=== PATIENT | female | born 1960 | race Caucasian/White ===

== ENCOUNTER 2018-07-10 10:12 | Emergency (ER) | payer SELFPAY ==
[2018-07-10 10:13] VITALS: BMI 28.0
[2018-07-10 10:30] VITALS: RESP 16; TEMP 98.2; O2SAT 98
--- NOTE | 2018-07-10 10:30 | C.PDOC ---
History Of Present Illness 58 y/o female presents to the ED for evaluation of left knee pain for the past few weeks. Patient reports pain to the left knee which radiates up and down the left leg. No known trauma or injury. She also complains of a rash to the b ilateral legs. States she saw her PMD and was given a cream with minimal relief. Rash is mildly pruritic. Otherwise patient denies any fevers or chills. No other complaints. Time Seen by Provider: 07/10/18 10:23 Chief Complaint (Nursing): Lower Extremity Problem/Injury History Per: Patient History/Exam Limitations: no limitations Onset/Duration Of Symptoms: Days Current Symptoms Are (Timing): Still Present Past Medical History Reviewed: Historical Data, Nursing Documentation, Vital Signs Vital Signs: Last Vital Signs Temp 98.2 F 07/10/18 10:18 Pulse 90 07/10/18 10:18 Resp 16 07/10/18 10:18 BP 172/92 H 07/10/18 10:18 Pulse Ox 98 07/10/18 10:18 - Medical History PMH: Asthma, HTN Denies: Depression Surgical History: Appendectomy - [facility] Procedures APPLICATION OF SPLINT (12/02/02) Family History: States: No Known Family Hx - Social History Hx Tobacco Use: No Hx Alcohol Use: No Hx Substance Use: No Review Of Systems Except As Marked, All Systems Reviewed And Found Negative. Constitutional: Negative for: Fever, Chills Cardiovascular: Negative for: Chest Pain Respiratory: Negative for: Cough, Shortness of Breath Musculoskeletal: Positive for: Leg Pain (left knee, radiating up and down left leg) Skin: Positive for: Rash (to bilateral lower extremities) Neurological: Negative for: Weakness, Numbness, Incoordination Physical Exam - Physical Exam Appears: Non-toxic, No Acute Distress, Other (Morbidly obese) Skin: Warm, Rash (bilateral lower leg rash, with palpable purpura) Head: Atraumatic, Normacephalic Eye(s): bilateral: Normal Inspection, PERRL, EOMI Oral Mucosa: Moist Neck: Normal ROM, Supple Chest: Symmetrical Respiratory: No Accessory Muscle Use, Other (No respiratory distress) Extremity: Normal ROM, Tenderness (to left knee), Calf Tenderness (left calf), No Swelling Pulses: Left Dorsalis Pedis: Normal, Right Dorsalis Pedis: Normal Neurological/Psych: Oriented x3, Normal Speech ED Course And Treatment - Laboratory Results Result Diagrams: 07/10/18 10:45 07/10/18 10:45 O2 Sat by Pulse Oximetry: 98 (RA) Pulse Ox Interpretation: Normal Medical Decision Making Medical Decision Making: Impression: Left knee pain, B/L LE Rash, appearing to be palpable pupura Initial Plan: - CMP - CBC - PTT/PT - Left knee x-ray - LLE Doppler US b/l leg rash and leg pain ? vascultiis vs itp no e/o of dvt, fx ,labs neg. discussed results and importance of outpt fu with pt. states will f/u outpt for further w/u of rash Disposition - Disposition Referrals: [facility] [Outside] [facility] [Outside] [facility] [Outside] Disposition: HOME/ ROUTINE Disposition Time: 12:00 Condition: STABLE Additional Instructions: please see your doctor/clinic. you will need further workup as an outpatient for your symptoms. it is important to follow up as an outpatient. return to any er with worsening. Instructions: Skin Rash, Arredondo Splints (DC), Knee Pain (DC) Forms: [facility] (Hebrew) - Clinical Impression Clinical Impression: Rash, Leg pain - Scribe Statement The provider has reviewed the documentation as recorded by the Abigail Castillo Provider Attestation: All medical record entries made by the Abigail were at my direction and personally dictated by me. I have reviewed the chart and agree that the record accurately reflects my personal performance of the history, physical exam, medical decision making, and the department course for this patient. I have also personally directed, reviewed, and agree with the discharge instructions and disposition.
[2018-07-10 10:57] LABS: BASO % 0.5 % (0.0-2.0); EOS # 0.1 K/uL (0.0-0.7); EOS % 1.1 % (0.0-4.0); HEMOGLOBIN 13.7 g/dL (11.0-16.0); LYMPH # 1.8 K/uL (1.0-4.3); LYMPH % 28.9 % (20.0-40.0); MEAN CELL VOLUME 81.5 fL (81.0-99.0); MEAN CORPUSCULAR HEMOGLOBIN 25.8 pg (27.0-31.0); MEAN CORPUSCULAR HGB CONC 31.7 g/dL (33.0-37.0); MEAN PLATELET VOLUME 7.8 fL (7.2-11.7); MONO # 0.4 K/uL (0.0-0.8); MONO % 6.3 % (0.0-10.0); NEUT # 3.9 K/uL (1.8-7.0); NEUT % 63.2 % (50.0-75.0); RBC 5.31 Mil/uL (3.80-5.20); RED CELL DISTRIBUTION WIDTH 14.2 % (11.5-14.5); WHITE BLOOD COUNT 6.2 K/uL (4.8-10.8)
[2018-07-10 11:05] LABS: PROTHROMBIN TIME 10.9 SECONDS (9.7-12.2)
[2018-07-10 11:13] LABS: ALB/GLOB RATIO 1.4 (1.0-2.1); ALBUMIN 4.6 g/dL (3.5-5.0); ALT/SGPT 24 U/L (9-52); AST/SGOT 26 U/L (14-36); BLOOD UREA NITROGEN 18 mg/dL (7-17); GFR NON-AFRICAN AMERICAN > 60
[2018-07-10 12:23] VITALS: BP 165/85; PULSE 81
--- NOTE | 2018-07-10 13:25 | RAD ---
Date of service: 07/10/2018 PROCEDURE: Left Knee Radiographs. HISTORY: Pain. COMPARISON: None. FINDINGS: BONES: Bone alignment and mineralization are normal. There is no acute displaced fracture or bone destruction. JOINTS: There is mild tricompartmental degenerative osteoarthrosis with reduced joint spaces, marginal osteophytes and tibial spiking, worse in the medial compartment. JOINT EFFUSION: There is a small suprapatellar joint effusion. OTHER FINDINGS: None. IMPRESSION: No acute fracture or dislocation. Mild tricompartmental degenerative osteoarthrosis, worse in the medial compartment. Small suprapatellar joint effusion.
--- NOTE | 2018-07-10 13:40 | VASCLAB ---
Date of service: 07/10/2018 PROCEDURE: Left Lower Extremity Venous Duplex Exam. HISTORY: Leg pain PRIORS: None. TECHNIQUE: Left common femoral, femoral, popliteal and posterior tibial, peroneal and great saphenous veins were evaluated. Flow was assessed with color Doppler, compressibility, assessment of phasic flow and augmentation response. Report prepared by CAROLINA Mcgill FINDINGS: LEFT: 1. Common Femoral Vein: 1.1. Compressibility - Fully compressible: Thrombus - None : Flow - Phasic: Augmentation -Normal: Reflux - None. 2. Femoral Vein: 2.1. Compressibility - Fully compressible: Thrombus - None: Flow - Phasic: Augmentation -Normal: Reflux - None. 3. Popliteal Vein: 3.1. Compressibility - Fully compressible: Thrombus - None: Flow - Phasic: Augmentation -Normal: Reflux - None. 4. Posterior Tibial Vein: 4.1. Compressibility - Fully compressible: Thrombus - None: Flow - Phasic: Augmentation -Normal: Reflux - None. 5. Peroneal Vein: 5.1. Compressibility - Fully compressible: Thrombus - None: Flow - Phasic: Augmentation -Normal: Reflux - None. 6. Great Saphenous Vein: 6.1. Compressibility - Fully compressible: Thrombus - None: Flow - Phasic: Augmentation - Normal: Reflux - None. OTHER FINDINGS: Normal venous flow noted in the RIGHT common femoral vein. IMPRESSION: No evidence of deep or superficial vein thrombosis of the left lower extremity with excellent venous flow. Normal valve function noted of the left side.
== END 2018-07-10 12:22 | disposition home or self-care (01) ==
LOC: C.ER 10:12
DX: M79.605 Pain in left leg (principal); R21 Rash and other nonspecific skin eruption; I10 Essential (primary) hypertension